=== PATIENT | female | born 1995 | race Caucasian/White ===

== ENCOUNTER 2018-04-02 07:19 | Inpatient (IN) | payer OTHER ==
[~2018-04-02] VITALS: Ht 160 cm; Wt 58.5 kg
[2018-04-05] MEDS ORDERED: CIPRO500 MG PO (13:32)
[2018-04-05] MEDS ORDERED: FLAGYL500MG PO (13:33)
[2018-04-05] MEDS ORDERED: MAXFE CAPLET1 EACH PO (13:35)
== END 2018-04-05 14:34 | DRG 395 ==
LOC: ER 07:19 → OB/GYN 21:45
PROC: BW25Y0Z Computerized Tomography (CT Scan) of Chest, Abdomen and Pelvis using Other Contrast, Unenhanced and Enhanced (ICD-10-PCS; principal; 2018-04-02)
PROC: BU4CZZZ Ultrasonography of Uterus and Ovaries (ICD-10-PCS; 2018-04-02)
PROC: BU4CZZZ Ultrasonography of Uterus and Ovaries (ICD-10-PCS; 2018-04-03)
DX: K66.1 Hemoperitoneum (principal); D50.0 Iron deficiency anemia secondary to blood loss (chronic); R10.2 Pelvic and perineal pain; N83.292 Other ovarian cyst, left side; N83.291 Other ovarian cyst, right side

== ENCOUNTER 2023-10-26 11:10 | Outpatient (CLI) | payer OTHER ==
[~2023-10-26 11:10] MED LIST: CIPRO500 MG PO; FLAGYL500MG PO; MAXFE CAPLET1 EACH PO
== END 2023-10-26 11:14 | disposition home or self-care (01) ==
LOC: SONOGRAMA 11:10
PROVIDERS: ATTEND Obstetrics & Gynecology
DX: N60.01 Solitary cyst of right breast (principal); N63.12 Unspecified lump in the right breast, upper inner quadrant; N63.21 Unspecified lump in the left breast, upper outer quadrant

== ENCOUNTER 2024-03-15 12:48 | Inpatient (IN) | payer OTHER ==
[~2024-03-15] VITALS: Ht 160 cm; Wt 3.2 kg
[2024-03-22 05:36] LABS: HEMATOCRIT 33.1 % (36.0-45.00); HEMOGLOBIN 11.4 g/dL (12.0-15.00); MEAN CELL VOLUME 82.2 fL (80.00-100.00); MEAN CORPUSCULAR HEMOGLOBIN 28.3 pg (27.00-32.0); MEAN CORPUSCULAR HGB CONC 34.4 g/dl (32.0-36.0); PLATELET COUNT 249 K/uL (150-450); RED BLOOD COUNT 4.02 M/uL (4.00-6.00); RED CELL DISTRIBUTION WIDTH 15.1 % (11.5-14.5)
[2024-03-22 05:52] LABS: INR < 0.93; PARTIAL THROMBOPLASTIN TIME 34.7 SECONDS (22.0-34.0); PROTHROMBIN TIME 9.5 SECONDS (9.0-11.5)
[2024-03-22] MEDS ORDERED: PRENATAL TABLE1 EAC1 PO (05:58)
[2024-03-22 06:04] LABS: BILIRUBIN TOTAL 0.39 mg/dL (0.3-1.2); CALCIUM 9.1 mg/dL (8.5-10.1); CREATININE SERUM 0.47 mg/dL (0.55-1.02); GFR 160.18; GLOBULINA 4.2 G/DL (2.4-3.5); POTASSIUM 4.05 mEq/L (3.5-5.1); TOTAL PROTEIN 7.2 gm/dL (6.4-8.2)
[2024-03-22] MEDS ORDERED: CEFAZOLIN SODIUM 1,000 MG VIAL ONE (08:16)
[2024-03-22] MEDS ORDERED: TERBUTALINE SULFATE 1 MG/ML AMPUL ONE (08:16)
[2024-03-22] MEDS ORDERED: OXYTOCIN 10 UNITS/ML VIAL ONE (08:19)
[2024-03-22] MEDS ORDERED: ERYTHROMYCIN BASE 1 GM TUBE OP ONE ×2 (08:19→12:30)
[2024-03-22] MEDS ORDERED: CEFAZOLIN SODIUM 1,000 MG VIAL IV SCH (08:45)
[2024-03-22] MEDS ORDERED: CITRIC ACID/SODIUM CITRATE 30 ML BLIST.PACK PO SCH (08:45)
[2024-03-22] MEDS ORDERED: TERBUTALINE SULFATE 1 MG/ML AMPUL IV STA (09:56)
[2024-03-22] MEDS ORDERED: OXYTOCIN 2,000 ML IV ONE (10:30)
[2024-03-22] MEDS ORDERED: SIMETHICONE 125 MG CAPSULE PO SCH (10:30)
[2024-03-22] MEDS ORDERED: DESMOPRESSIN ACETATE 20 MCG in 0.9 % SODIUM CHLORIDE 50 ML IV SCH (10:30)
[2024-03-22] MEDS ORDERED: PROMETHAZINE HCL 25 MG/ML AMPUL IV SCH ×2 (12:00→17:00)
[2024-03-22] MEDS ORDERED: MEPERIDINE HCL/PF 50 MG/ML VIAL IV SCH ×2 (12:00→17:00)
[2024-03-22] MEDS ORDERED: PROMETHAZINE HCL 25 MG/ML AMPUL ONE (12:10)
[2024-03-22] MEDS ORDERED: OXYTOCIN 10 UNITS/ML VIAL IV ONE (12:30)
[2024-03-22] MEDS ORDERED: CEFAZOLIN SODIUM 1,000 MG VIAL IV ONE (12:30)
[2024-03-22 19:26] LABS: HEMATOCRIT 29.7 % (36.0-45.00); HEMOGLOBIN 10.2 g/dL (12.0-15.00); MEAN CELL VOLUME 82.6 fL (80.00-100.00); MEAN CORPUSCULAR HEMOGLOBIN 28.3 pg (27.00-32.0); MEAN CORPUSCULAR HGB CONC 34.3 g/dl (32.0-36.0); PLATELET COUNT 234 K/uL (150-450); RED BLOOD COUNT 3.59 M/uL (4.00-6.00); RED CELL DISTRIBUTION WIDTH 15.1 % (11.5-14.5)
[2024-03-22] MEDS ORDERED: LABETALOL HCL 200 MG TABLET PO SCH (21:00)
[2024-03-22] MEDS ORDERED: KETOROLAC TROMETHAMINE 30 MG VIAL IV SCH (21:00)
[2024-03-23] MEDS ORDERED: ACETAMINOPHEN 500 MG GEL..CAP PO SCH
[2024-03-23 06:15] LABS: PH,URINE 6.5 (5.0-8.0); URINE APPEARANCE Clear; URINE BILIRRUBIN Negative (NEGATIVE); URINE BLOOD Large; URINE COLOR Orange; URINE GLUCOSE Negative (NEGATIVE); URINE KETONE Trace (NEGATIVE); URINE LEUKOCYTE Small; URINE NITRATE Negative; URINE PROTEIN 30 (NEGATIVE)
[2024-03-23 06:19] LABS: URINE BACTERIA 162.5 uL (0.0-1933); URINE EPITHELIAL CELLS 15.9 uL (0.0-38.8); URINE RBC 5339.7 uL (0.0-20.8); URINE WBC 69.8 uL (0.0-23.2)
[2024-03-23 06:21] LABS: HEMATOCRIT 27.6 % (36.0-45.00); HEMOGLOBIN 9.5 g/dL (12.0-15.00); MEAN CELL VOLUME 83.2 fL (80.00-100.00); MEAN CORPUSCULAR HEMOGLOBIN 28.8 pg (27.00-32.0); MEAN CORPUSCULAR HGB CONC 34.6 g/dl (32.0-36.0); PLATELET COUNT 218 K/uL (150-450); RED BLOOD COUNT 3.31 M/uL (4.00-6.00); RED CELL DISTRIBUTION WIDTH 15.1 % (11.5-14.5)
[2024-03-23 06:54] LABS: ALBUMIN 2.1 gm/dL (3.4-5.0); BILIRUBIN TOTAL 0.42 mg/dL (0.3-1.2); CALCIUM 8.3 mg/dL (8.5-10.1); CREATININE SERUM 0.45 mg/dL (0.55-1.02); GFR 168.42; GLOBULINA 3.2 G/DL (2.4-3.5); POTASSIUM 3.77 mEq/L (3.5-5.1); TOTAL PROTEIN 5.3 gm/dL (6.4-8.2)
[2024-03-23] MEDS ORDERED: PNV,CALCIUM 72/IRON/FOLIC ACID 1 TAB TABLET PO SCH (09:00)
[2024-03-23] MEDS ORDERED: DOCUSATE SODIUM 100MG CAP PO SCH (09:00)
[2024-03-23] MEDS ORDERED: GABAPENTIN 300 MG CAPSULE PO SCH (09:00)
[2024-03-23] MEDS ORDERED: FF) RHO(D) IMMUNE GLOBULIN (POM) IM ONE (12:00)
[2024-03-23] MEDS ORDERED: KETOROLAC TROMETHAMINE 10 MG TABLET PO SCH (18:00)
== END 2024-03-24 17:00 | disposition home or self-care (01) | DRG 788 ==
LOC: OB/GYN 12:48 → LDR 03-22 04:38 → OB/GYN 03-22 10:25
PROVIDERS: Obstetrics & Gynecology Gynecology; Obstetrics & Gynecology Maternal & Fetal Medicine; ADMIT Obstetrics & Gynecology; ATTEND Obstetrics & Gynecology
PROC: 4A1HXCZ Monitoring of Products of Conception, Cardiac Rate, External Approach (ICD-10-PCS; 2024-03-22)
PROC: 10D00Z1 Extraction of Products of Conception, Low, Open Approach (ICD-10-PCS; principal; 2024-03-22 10:00)
PROC: B54DZZZ Ultrasonography of Bilateral Lower Extremity Veins (ICD-10-PCS; 2024-03-24)
DX: O48.0 Post-term pregnancy (principal); O69.5XX0 Labor and delivery complicated by vascular lesion of cord, not applicable or unspecified; Z3A.41 41 weeks gestation of pregnancy; Z37.0 Single live birth; Z20.822 Contact with and (suspected) exposure to COVID-19

== ENCOUNTER → 2024-03-17 | Outpatient (CLI) | payer OTHER ==
[~2024-03-17] VITALS: Ht 160 cm; Wt 75.7 kg
[~2024-03-17] MED LIST changes: +PRENATAL TABLE1 EAC1 PO
[2024-03-17 15:50] VITALS: BP 141/78
== END | disposition left against medical advice (07) ==
LOC: NST 14:38 → OBS/DEL 14:38
PROVIDERS: ATTEND Obstetrics & Gynecology
DX: O26.893 Other specified pregnancy related conditions, third trimester (principal); Z3A.40 40 weeks gestation of pregnancy

== ENCOUNTER 2024-12-11 18:58 | Emergency (ER) | payer OTHER ==
[~2024-12-11] VITALS: Ht 160 cm; Wt 59.0 kg
== END 2024-12-11 21:53 | disposition home or self-care (01) ==
LOC: ER 18:58
DX: F41.8 Other specified anxiety disorders (principal); Z91.040 Latex allergy status; E06.3 Autoimmune thyroiditis; Z88.8 Allergy status to other drugs, medicaments and biological substances